=== PATIENT | female | born 1990 | race Caucasian/White ===

== ENCOUNTER 2021-08-16 23:23 | Inpatient (IN) | payer OTHER ==
[~2021-08-16] VITALS: Ht 167.6 cm; Wt 81.6 kg
--- NOTE | 2021-08-16 23:56 | NUR ---
pt bibs c/o difficulty breathing x1 wk with exertion. pt denies chest pain, cough, fever, chills. pt is a/o x4.pt is on monitor.
[2021-08-17 00:17] LABS: BASOPHILS # (AUTO) 0.1 K/uL (0.0-0.2); BASOPHILS % (AUTO) 0.9 % (0.0-2.0); EOSINOPHILS % (AUTO) 0.5 % (0.0-6.0); HEMATOCRIT 36 % (33-45); HEMOGLOBIN 11.2 g/dL (11.5-14.8); LYMPHOCYTES # (AUTO) 1.6 K/uL (0.8-4.8); LYMPHOCYTES % (AUTO) 25.8 % (20.0-44.0); MEAN CORPUSCULAR HGB CONC 31 g/dl (31.0-36.0); MEAN CORPUSCULAR VOLUME 70 fL (82-100); MONOCYTES # (AUTO) 0.7 K/uL (0.1-1.30); MONOCYTES % (AUTO) 10.5 % (2.0-12.0); NEUTROPHILS # (AUTO) 3.9 K/uL (1.8-8.9); NEUTROPHILS % (AUTO) 62.3 % (43.0-81.0); PLATELET COUNT (AUTO) 344 K/uL (150-450); RED BLOOD CELL COUNT(AUTO) 5.13 MIL/uL (4.0-5.2); WHITE BLOOD COUNT (AUTO) 6.3 K/uL (4.3-11.0)
[2021-08-17 00:55] LABS: CALCIUM, SERUM 8.4 mg/dL (8.5-10.1); CREATININE 1.3 mg/dL (0.6-1.3); POTASSIUM 3.5 mmol/L (3.5-5.1)
[2021-08-17] MEDS ORDERED: IV NS 0.9% 250 ML IV ONE (01:05)
[2021-08-17] MEDS ORDERED: IOHEXOL-350 100 ML VIAL IV ONE (01:05)
[2021-08-17] MEDS ORDERED: CT SWABBABLE VALVE TRANS SET 1 EA INFUS.SET MC ONE (01:05)
[2021-08-17 01:08] LABS: ALBUMIN 2.9 g/dL (3.4-5.0); BILIRUBIN,DIRECT 0.8 mg/dL (0.0-0.2); BILIRUBIN,TOTAL 2.1 mg/dL (0.2-1.0); TOTAL PROTEIN, SERUM 7.5 g/dL (6.4-8.2)
--- NOTE | 2021-08-17 01:12 | NUR ---
PT TAKEN TO CT VIA [facility]
--- NOTE | 2021-08-17 01:55 | NUR ---
spoke with thomas, rn case management. pt is going to be transferred. pending covid swab.
[2021-08-17] MEDS ORDERED: FUROSEMIDE 40 MG/4 ML VIAL IV ONE (02:00)
[2021-08-17] MEDS ORDERED: ENALAPRILAT DIHYD. (2.5MG/2ML) 1.25 MG/ML VIAL IV ONE ×2 (02:00→03:00)
[2021-08-17] MEDS ORDERED: FUROSEMIDE 40 MG/4 ML VIAL ONE (02:04)
[2021-08-17] MEDS ORDERED: ENALAPRILAT INJ (1.25 MG/ML) 1.25 MG/ML VIAL IV ONE ×2 (02:04→03:01)
[2021-08-17] MEDS ORDERED: NITROGLYCERIN 0.4 MG/TAB BOTTLE SL ONE (03:00)
[2021-08-17] MEDS ORDERED: NITROGLYCERIN 0.4 MG/TAB BOTTLE ONE (03:01)
--- NOTE | 2021-08-17 03:02 | NUR ---
COVID RESULT RELAYED AND FAXED TO [facility].
--- NOTE | 2021-08-17 03:12 | NUR ---
BP 166/122. SECOND SL NITRO GIVEN.
--- NOTE | 2021-08-17 03:17 | NUR ---
Bladimir bravo in ED - 08/17/21 at 0321 by MARINABBRISHI 3RD SL NITRO GIVEN. PT TOLERATED WELL.
--- NOTE | 2021-08-17 03:21 | NUR ---
BP 160/101. 3RD SL NITRO GIVEN. PT TOLERATED WELL.
--- NOTE | 2021-08-17 05:23 | NUR ---
PT AWAKE AND ALERT BREATHING EVEN AND UNLABORED CALL LIGHT WITHIN REACH. PT ON MONITOR AND ALL V/S STABLE.
[2021-08-17] MEDS ORDERED: NITROGLYCERIN PACKET 1 GM PACKET ONE (06:09)
--- NOTE | 2021-08-17 06:15 | NUR ---
ADMISSION FOLLOWED UP WITH [facility] SKIN THERAPIST REGARDING PT TRANSFER. PT IS GOING TO [facility] BUT STILL WAITING FOR AN AVAILABLE BED.
[2021-08-17] MEDS ORDERED: NITROGLYCERIN PACKET 1 GM PACKET TD ONE (06:30)
--- NOTE | 2021-08-17 06:51 | NUR ---
CALLED BACK SEBASTIAN, REAMING MACHINE OPERATOR TO FOLLOW UP ON PT'S TRANSFER. INFORMED HER THAT PA HAS BEEN WAITING FOR 5 HRS AND STILL NO BED AT [facility]. PT CAN BE ADMITTED HERE IF PT IS TO BE AUTHORIZED
--- NOTE | 2021-08-17 07:08 | NUR ---
SPOKE WITH SEBASTIAN, ADJUNCT NURSING FACULTY. PT IS AUTHORIZED TO STAY HERE. VERBAL AUTH UNDER SEBASTIAN.
--- NOTE | 2021-08-17 07:14 | NUR ---
ROMANA BALDWIN ON PHONE WITH DR. MATOS
--- NOTE | 2021-08-17 07:16 | NUR ---
CALLED NURSING SUP FOR A BED
--- NOTE | 2021-08-17 08:26 | NUR ---
ROOM 311-1
--- NOTE | 2021-08-17 08:29 | NUR ---
REPORT GIVEN TO NURSE VALDEZ FOR CINDY
--- NOTE | 2021-08-17 08:37 | NUR ---
THE PATIENT IS TRANSFERED TO ROOM 311-1 IN STABLE CONDITION AND PER ACLS POLICY
--- NOTE | 2021-08-17 09:20 | NUR ---
HOLE DIGGER OPERATOR ADMITTING NOTES RECEIVED ADMISSION FROM ER. PATIENT A/O X4, ABLE T MAKE NEEDS KNOWN. ON ROOM AIR; BREATHING EVEN AND UNLABORED WITH MILD SOB WITH EXERTION. NO COMPLAINS OF PAIN AT THIS TIME. IV ACCESS ON LAC; SL. SAFETY PRECAUTIONS IN PLACE; BED IN LOW POSITION AND LOCKED, RAILS UP X2, CALL LIGHT WITHIN REACH. WILL CONTINUE TO MONITOR PATIENT.
[2021-08-17] MEDS ORDERED: ACETAMINOPHEN 650 MG/20.3 ML UDC NG PRN (10:30)
[2021-08-17] MEDS ORDERED: ZOLPIDEM TARTRATE 5 MG TABLET PO PRN (10:30)
[2021-08-17] MEDS: ENOXAPARIN SODIUM 40 MG/0.4 ML DISP.SYRIN SQ SCH (10:56)
[2021-08-17] MEDS: LISINOPRIL (20MG) 20 MG TABLET PO SCH (10:57)
[2021-08-17 12:00] VITALS: BP 139/94
[2021-08-17] MEDS ORDERED: ACETAMINOPHEN 325 MG TABLET PO PRN (14:00)
--- NOTE | 2021-08-17 14:00 | NUR ---
MEDICAL CASE WORKER NOTES PATIENT COMPLAINING OF HEADACHE 4 OUT OF 10; REQUESTING PAIN MEDICATION. PRN TYLENOL ADMINISTERED. WILL REASSESS.
[2021-08-17 16:00] VITALS: BP 146/100
[2021-08-17] MEDS: FUROSEMIDE 40 MG/4 ML VIAL IV SCH (16:55)
--- NOTE | 2021-08-17 18:48 | NUR ---
SOCIAL WORK SUPERVISOR CLOSING NOTES PATIENT REMAINS IN BED, ASLEEP. PATIENT ON ROOM AIR; BREATHING EVEN AND UNLABORED; MILD SOB NOTED WITH EXERTION. NO COMPLAINS OF PAIN. TELE MONITOR WITH A CURRENT READING OF ST [address] BPM. LAC IV ACCESS IN PLACE AND INTACT; SL. ALL NEEDS ATTENDED DURING THE DAY. SAFETY PRECAUTIONS IN PLACE; BED IN LOW POSITION AND LOCKED, RAILS UP X2, CALL LIGHT WITHIN REACH. WILL ENDORSE TO TANKMAN NURSE FOR CINDY.
--- NOTE | 2021-08-17 19:30 | NUR ---
WOOD BLOCK ARTIST OPENING RECEIVED PATIENT IN ROOM, AMBULATORY TO THE RESTROOM. A/OX4. NO S/S OF APPARENT DISTRESS ON ROOM AIR. NO C/O PAIN AT THIS TIME. TELE MONITOR READING ST. NO FLUIDS RUNNING AT THIS TIME. SAFETY IN PLACE. WILL CONTINUE WITH PATIENT CARE PLAN.
[2021-08-17 20:00] VITALS: BP 134/78
[2021-08-18] VITALS: BP 145/89
[2021-08-18 04:00] VITALS: BP 142/99
--- NOTE | 2021-08-18 06:06 | NUR ---
CHILD MONITOR NOTE MRSA SWAB OBTAINED.
[2021-08-18 06:44] LABS: BASOPHILS % (AUTO) 0.7 % (0.0-2.0); EOSINOPHILS % (AUTO) 2.2 % (0.0-6.0); HEMATOCRIT 31 % (33-45); HEMOGLOBIN 9.9 g/dL (11.5-14.8); LYMPHOCYTES # (AUTO) 1.6 K/uL (0.8-4.8); LYMPHOCYTES % (AUTO) 29.6 % (20.0-44.0); MEAN CORPUSCULAR HGB CONC 32 g/dl (31.0-36.0); MEAN CORPUSCULAR VOLUME 69 fL (82-100); MONOCYTES # (AUTO) 0.7 K/uL (0.1-1.30); MONOCYTES % (AUTO) 12.8 % (2.0-12.0); NEUTROPHILS % (AUTO) 54.7 % (43.0-81.0); PLATELET COUNT (AUTO) 270 K/uL (150-450); RED BLOOD CELL COUNT(AUTO) 4.53 MIL/uL (4.0-5.2); WHITE BLOOD COUNT (AUTO) 5.5 K/uL (4.3-11.0)
[2021-08-18 07:18] LABS: ALBUMIN 2.4 g/dL (3.4-5.0); BILIRUBIN,TOTAL 1.6 mg/dL (0.2-1.0); CALCIUM, SERUM 7.9 mg/dL (8.5-10.1); CREATININE 1.2 mg/dL (0.6-1.3); POTASSIUM 2.9 mmol/L (3.5-5.1); TOTAL PROTEIN, SERUM 6.1 g/dL (6.4-8.2)
--- NOTE | 2021-08-18 07:35 | NUR ---
MS RN CLOSING NO SIGNIFICANT CHANGE SINCE LAST ENDORSEMENT. REPORT GIVEN TO MARLA FOR CONTINUITY OF CARE.
--- NOTE | 2021-08-18 07:45 | NUR ---
RN OPENING NOTES PATIENT AWAKE IN BED RESTING. A/O X4. NO S/S OF PAIN NOTED AT THIS TIME. ON ROOM AIR, NO DISTRESS OR SHORTNESS OF BREATH NOTED. IV LAC #20G INTACT, PATENT AND FLUSHING WELL. PATIENT HAS AN EXTERNAL SHOE LINING FITTER, NO CARDIAC DISTRESS NOTED. FALL AND SAFETY MEASURES IN PLACE, BED ALARM ON, BED IN LOW AND LOCK POSITION, CALL LIGHT AND TABLE WITHIN EASY REACH SIDE RAILS UP X2. WILL CONTINUE TO MONITOR.
[2021-08-18 08:00] VITALS: BP 151/100
[2021-08-18] MEDS: LISINOPRIL (20MG) 20 MG TABLET PO SCH (09:40)
[2021-08-18] MEDS: FUROSEMIDE 40 MG/4 ML VIAL IV SCH ×2 (09:41→18:07)
[2021-08-18] MEDS: ENOXAPARIN SODIUM 40 MG/0.4 ML DISP.SYRIN SQ SCH (09:42)
[2021-08-18] MEDS ORDERED: POTASSIUM CHLORIDE 20 MEQ TAB.PRT.SR PO SCH ×2 (10:30→14:00)
[2021-08-18] MEDS: POTASSIUM CHLORIDE 20 MEQ TAB.PRT.SR PO SCH ×2 (11:49→13:54)
[2021-08-18 12:00] VITALS: BP 125/74
[2021-08-18] MEDS: METOPROLOL SUCCINATE 50 MG TAB.SR.24H PO SCH (13:46)
[2021-08-18 16:00] VITALS: BP 121/60
--- NOTE | 2021-08-18 19:43 | NUR ---
RN CLOSING NOTES PATIENT AWAKE IN BED RESTING. A/O X4. NO S/S OF PAIN NOTED AT THIS TIME. ON ROOM AIR, NO DISTRESS OR SHORTNESS OF BREATH NOTED. IV LAC #20G INTACT, PATENT AND FLUSHING WELL. PATIENT HAS AN EXTERNAL OVERHAULER, NO CARDIAC DISTRESS NOTED. FALL AND SAFETY MEASURES IN PLACE, BED ALARM ON, BED IN LOW AND LOCK POSITION, CALL LIGHT AND TABLE WITHIN EASY REACH SIDE RAILS UP X2. WILL ENDORSE TO BURNING PLANT OPERATOR.
--- NOTE | 2021-08-18 19:44 | NUR ---
MOTION PICTURE SET GRIP OPENING RECEIVED PATIENT IN ROOM, AMBULATORY TO THE RESTROOM. A/OX4. NO S/S OF APPARENT DISTRESS ON ROOM AIR. NO C/O PAIN AT THIS TIME. TELE MONITOR READING SR 84. NO FLUIDS RUNNING AT THIS TIME. SAFETY IN PLACE. NEEDS ATTENDED AT THIS TIME. WILL CONTINUE WITH PATIENT CARE PLAN.
[2021-08-18 20:00] VITALS: BP 128/84
[2021-08-19] VITALS: BP 134/86
[2021-08-19 04:00] VITALS: BP 123/78
[2021-08-19 07:12] LABS: BASOPHILS % (AUTO) 0.5 % (0.0-2.0); EOSINOPHILS % (AUTO) 2.1 % (0.0-6.0); HEMATOCRIT 31 % (33-45); HEMOGLOBIN 9.8 g/dL (11.5-14.8); LYMPHOCYTES # (AUTO) 1.9 K/uL (0.8-4.8); LYMPHOCYTES % (AUTO) 36.4 % (20.0-44.0); MEAN CORPUSCULAR HGB CONC 31 g/dl (31.0-36.0); MEAN CORPUSCULAR VOLUME 70 fL (82-100); MONOCYTES # (AUTO) 0.8 K/uL (0.1-1.30); NEUTROPHILS # (AUTO) 2.4 K/uL (1.8-8.9); PLATELET COUNT (AUTO) 272 K/uL (150-450); RED BLOOD CELL COUNT(AUTO) 4.46 MIL/uL (4.0-5.2); WHITE BLOOD COUNT (AUTO) 5.3 K/uL (4.3-11.0)
[2021-08-19 07:20] LABS: ALBUMIN 2.4 g/dL (3.4-5.0); CALCIUM, SERUM 8.4 mg/dL (8.5-10.1); CREATININE 1.2 mg/dL (0.6-1.3); POTASSIUM 4.2 mmol/L (3.5-5.1); TOTAL PROTEIN, SERUM 6.4 g/dL (6.4-8.2)
--- NOTE | 2021-08-19 07:33 | NUR ---
AUTOMATIC CENTRIFUGAL STATION OPERATOR CLOSING REPORT GIVEN TO GUZMAN FOR CONTINUITY OF CARE.
--- NOTE | 2021-08-19 07:45 | NUR ---
NURSING EDUCATION SPECIALIST OPENING NOTE Patient in bed, asleep. A/O x 4. On room air, breathing evenly and unlabored. No SOB or s/s of distress noted. IV access on LAC #20G SL, intact and patent. Slight edema on BLE noted. Safety precautions in place: bed in low, locked position; siderails up x 2; call light within reach. Will continue to monitor.
[2021-08-19 08:00] VITALS: BP 129/87
[2021-08-19] MEDS: FUROSEMIDE 40 MG/4 ML VIAL IV SCH (09:10)
[2021-08-19] MEDS: LISINOPRIL (20MG) 20 MG TABLET PO SCH (09:11)
[2021-08-19] MEDS: ENOXAPARIN SODIUM 40 MG/0.4 ML DISP.SYRIN SQ SCH (11:05)
[2021-08-19] MEDS ORDERED: METO50TA7 PO (11:42)
[2021-08-19] MEDS ORDERED: FURO-144 PO (11:42)
[2021-08-19] MEDS ORDERED: LISI20TA30 PO (11:42)
[2021-08-19] MEDS ORDERED: POTA20PA41 PO (11:42)
[2021-08-19 12:00] VITALS: BP 126/64
[2021-08-19] MEDS ORDERED: SPIRONOLACTONE 25 MG TABLET PO SCH (12:00)
[2021-08-19] MEDS: METOPROLOL SUCCINATE 50 MG TAB.SR.24H PO SCH (12:39)
[2021-08-19 16:00] VITALS: BP 118/79
--- NOTE | 2021-08-19 16:30 | NUR ---
DISCHARGE NOTE Received order for discharge. Patient is A/O x 4, able to make needs known. Stable on room air, breathing evenly and unlabored. No SOB or s/s of distress noted. Discharge instructions given both verbally and in written form, verbalized understanding. IV access on LAC removed, catheter tip intact; pressure dressing applied, no signs of bleeding noted. ID band and tele box removed. Prescription and exitcare folder given. Denies any pain or discomfort at this time. Patient left in stable condition via private car.
== END 2021-08-19 16:30 | disposition home or self-care (01) | DRG 194 ==
LOC: ER 23:23 → TELE 08-17 08:23
PROVIDERS: ADMIT Internal Medicine; ATTEND Internal Medicine
DX: I11.0 Hypertensive heart disease with heart failure (principal); I27.20 Pulmonary hypertension, unspecified; I42.0 Dilated cardiomyopathy; R18.8 Other ascites; N20.0 Calculus of kidney; I16.1 Hypertensive emergency; Z20.822 Contact with and (suspected) exposure to COVID-19; E87.6 Hypokalemia; I50.23 Acute on chronic systolic (congestive) heart failure; F19.11 Other psychoactive substance abuse, in remission; M85.80 Other specified disorders of bone density and structure, unspecified site
CPT/HCPCS: 36415; 71045-TC; 76705-TC; 80048-TC; 80053-TC; 80074; 80076-TC; 83880; 84443-TC; 84484-TC; 84703-TC; 85025-TC; 85378-TC; 85730-TC; 87081-TC; 93307-TC; C9803; G0378; J1650; J1940; J3490; J7050; Q9967